=== PATIENT | female | born 1975 | race Caucasian/White ===

== ENCOUNTER → 2016-08-05 | Outpatient (CLI) | payer BC ==
[2016-08-05 16:31] LABS: BASO % 0.2 %; BASO ABS # 0.02 K/uL (0-0.2); COMPLETE YES; EOS % 1.2 %; HEMATOCRIT 41.2 % (37-47); IG% 0.2 %; LYMPH % 27.2 %; LYMPH ABS # 2.86 K/uL (1.2-3.4); MEAN CELL VOLUME 80.3 fL (80-100); MEAN CORPUSCULAR HEMOGLOBIN 25.5 pg (25-34); MEAN CORPUSCULAR HGB CONC 31.8 g/dl (32-36); MEAN PLATELET VOLUME 9.2 fL (7.4-10.4); MONO % 7.4 %; NEUT % 63.8 %; PLATELET COUNT 374 K/uL (130-400); RED BLOOD COUNT 5.13 M/uL (4.2-5.4); WHITE BLOOD COUNT 10.51 K/uL (4.8-10.8)
[2016-08-05 16:57] LABS: FERRITIN 111.1 ng/ml (8.0-388.0)
== END | disposition home or self-care (01) ==
LOC: C.LAB 15:35
PROVIDERS: ATTEND Internal Medicine Hematology & Oncology
DX: E61.1 Iron deficiency (principal)

== ENCOUNTER → 2016-11-02 | Outpatient (CLI) | payer BC ==
[2016-11-02 13:21] LABS: BASO % 0.3 %; BASO ABS # 0.03 K/uL (0-0.2); COMPLETE YES; EOS % 1.8 %; HEMATOCRIT 41.3 % (37-47); IG% 0.2 %; LYMPH % 35.7 %; LYMPH ABS # 3.22 K/uL (1.2-3.4); MEAN CELL VOLUME 82.6 fL (80-100); MEAN CORPUSCULAR HEMOGLOBIN 27.2 pg (25-34); MEAN CORPUSCULAR HGB CONC 32.9 g/dl (32-36); MEAN PLATELET VOLUME 8.9 fL (7.4-10.4); MONO % 7.8 %; NEUT % 54.2 %; PLATELET COUNT 369 K/uL (130-400); WHITE BLOOD COUNT 9.03 K/uL (4.8-10.8)
[2016-11-02 14:49] LABS: URINE APPEARANCE CLEAR (CLEAR); URINE BILIRUBIN NEG (NEG); URINE COLOR YELLOW; URINE NITRITE NEG (NEG); URINE SPECIFIC GRAVITY 1.022 (1.000-1.030); UROBILINOGEN NEG (NEG); ZZUR CULT IF INDIC CLEAN CATCH NO
[2016-11-02 14:59] LABS: MANUAL MICROSCOPIC REQUIRED? NO; REVIEW REQ? NO
== END | disposition home or self-care (01) ==
LOC: C.LAB 12:32
PROVIDERS: ATTEND Internal Medicine Hematology & Oncology
DX: E61.1 Iron deficiency (principal); R31.29 Other microscopic hematuria

== ENCOUNTER → 2017-02-17 | Outpatient (CLI) | payer BC ==
[2017-02-17 14:34] LABS: BASO % 0.2 %; BASO ABS # 0.02 K/uL (0-0.2); COMPLETE YES; EOS % 2.8 %; HEMATOCRIT 42.2 % (37-47); IG% 0.2 %; LYMPH % 30.9 %; LYMPH ABS # 2.67 K/uL (1.2-3.4); MEAN CELL VOLUME 84.4 fL (80-100); MEAN PLATELET VOLUME 8.6 fL (7.4-10.4); MONO % 7.4 %; NEUT % 58.5 %; PLATELET COUNT 348 K/uL (130-400); WHITE BLOOD COUNT 8.63 K/uL (4.8-10.8)
[2017-02-17 15:09] LABS: FERRITIN 46.4 ng/ml (8.0-388.0)
== END | disposition home or self-care (01) ==
LOC: C.LAB 13:35
PROVIDERS: ATTEND Internal Medicine Hematology & Oncology
DX: E61.1 Iron deficiency (principal)

== ENCOUNTER → 2017-04-07 | Outpatient (CLI) | payer BC ==
[2017-04-07 15:33] LABS: ALT/SGPT 20 U/L (12-78); BLOOD UREA NITROGEN 10 mg/dl (7-18); BUN/CREATININE RATIO 10.8 (10-20); CALCIUM 8.6 mg/dl (8.5-10.1); CARBON DIOXIDE 26 mmol/L (21-32); CHLORIDE 105 mmol/L (98-107); CHOLESTEROL 136 mg/dl (0-200); CREATININE 0.91 mg/dl (0.60-1.20); GLUCOSE 81 mg/dl (70-99); POTASSIUM 3.4 mmol/L (3.5-5.1); SODIUM 138 mmol/L (136-145)
[2017-04-07 15:43] LABS: ALB/GLOB RATIO 0.9 (0.9-2); ALKALINE PHOSPHATASE 71 U/L (45-117); AST/SGOT 12 U/L (15-37); CHOLESTEROL/HDL RATIO 2.6; HDL CHOLESTEROL 53 mg/dl; LDL CHOLESTEROL CALCULATED 69 mg/dl; TRIGLYCERIDES 69 mg/dl (0-150); VERY LOW DENSITY LIPOPROT CALC 14 mg/dl
== END | disposition home or self-care (01) ==
LOC: C.LAB 13:20
PROVIDERS: ATTEND Internal Medicine
DX: I10 Essential (primary) hypertension (principal)

== ENCOUNTER → 2017-04-27 | Outpatient (CLI) | payer BC | END | disposition home or self-care (01) | LOC: C.PATHSPEC 13:45 | PROVIDERS: ATTEND Dentist Endodontics | DX: K04.99 Other diseases of pulp and periapical tissues (principal) ==

== ENCOUNTER → 2017-07-25 | Outpatient (CLI) | payer BC ==
[2017-07-25 13:26] LABS: BASO % 0.4 %; BASO ABS # 0.03 K/uL (0-0.2); COMPLETE YES; EOS % 2.6 %; HEMATOCRIT 40.9 % (37-47); IG% 0.3 %; LYMPH ABS # 2.86 K/uL (1.2-3.4); MEAN CELL VOLUME 86.1 fL (80-100); MEAN CORPUSCULAR HEMOGLOBIN 27.8 pg (25-34); MEAN CORPUSCULAR HGB CONC 32.3 g/dl (32-36); MEAN PLATELET VOLUME 9.1 fL (7.4-10.4); MONO % 8.1 %; NEUT % 52.6 %; PLATELET COUNT 356 K/uL (130-400); RED BLOOD COUNT 4.75 M/uL (4.2-5.4); WHITE BLOOD COUNT 7.94 K/uL (4.8-10.8)
[2017-07-25 13:34] LABS: ALT/SGPT 21 U/L (12-78); BLOOD UREA NITROGEN 13 mg/dl (7-18); BUN/CREATININE RATIO 11.7 (10-20); CALCIUM 8.6 mg/dl (8.5-10.1); CARBON DIOXIDE 28 mmol/L (21-32); CHLORIDE 105 mmol/L (98-107); CREATININE 1.07 mg/dl (0.60-1.20); GLUCOSE 86 mg/dl (70-99); POTASSIUM 3.8 mmol/L (3.5-5.1); SODIUM 138 mmol/L (136-145)
[2017-07-25 13:37] LABS: ALB/GLOB RATIO 0.9 (0.9-2); ALKALINE PHOSPHATASE 63 U/L (45-117); AST/SGOT 11 U/L (15-37); FERRITIN 26.1 ng/ml (8.0-388.0); TOTAL IRON BINDING CAPACITY 258 mcg/dl (250-450)
== END | disposition home or self-care (01) ==
LOC: C.LAB 12:08
PROVIDERS: ATTEND Internal Medicine
DX: D50.9 Iron deficiency anemia, unspecified (principal); I10 Essential (primary) hypertension; E55.9 Vitamin D deficiency, unspecified